=== PATIENT | male | born 1975 | race Two or more races ===

== ENCOUNTER → 2021-02-01 | Emergency (ER) | payer OTHER ==
[~2021-02-01] VITALS: Ht 177.8 cm; Wt 90.7 kg
[~2021-02-01] MED LIST: IVERMECTIN3 MG PO
== END | disposition left against medical advice (07) ==
LOC: ER 23:22
DX: Z53.20 Procedure and treatment not carried out because of patient's decision for unspecified reasons (principal)

== ENCOUNTER 2021-02-03 07:45 | Emergency (ER) | payer OTHER ==
[~2021-02-03] VITALS: Ht 177.8 cm; Wt 90.7 kg
[2021-02-03] MEDS ORDERED: IVERMECTIN3 MG PO (12:59)
== END 2021-02-03 13:14 | disposition home or self-care (01) ==
LOC: ER 07:45
DX: U07.1 COVID-19 (principal); R05 Cough

== ENCOUNTER → 2021-02-03 | Emergency (ER) | payer OTHER ==
[~2021-02-03] VITALS: Ht 177.8 cm; Wt 90.7 kg
== END | disposition left against medical advice (07) ==
LOC: ER 13:45
DX: U07.1 COVID-19 (principal)